=== PATIENT | female | born 1990 | race American Indian/Alaskan Native ===

== ENCOUNTER 2016-11-22 20:05 | Emergency (ER) | payer MEDICAID ==
[2016-11-22 21:37] LABS: Basophils % (Auto) 0.6 % (0.0-1.8); Eosinophils % (Auto) 2.4 % (0.0-4.3); Hematocrit 27.3 % (30.3-42.9); Hemoglobin 8.5 gm/dl (10.1-14.3); Mean Corpuscular HGB Conc 31 % (30-34); Mean Corpuscular Volume 74 fl (79-97); Platelet Count 400 K/mm3 (140-440); Red Blood Count 3.68 M/mm3 (3.65-5.03); Red Cell Distribution Width 16.1 % (13.2-15.2); White Blood Count 14.4 K/mm3 (4.5-11.0)
[2016-11-22 21:40] LABS: Mean Corpuscular Hemoglobin 23 pg (28-32)
--- NOTE | 2016-11-22 21:56 | Emergency Department Report ---
ED Syncope HPI - General Chief Complaint: Syncope Stated Complaint: SYNCOPE Time Seen by Provider: 11/22/16 20:56 Source: patient Exam Limitations: no limitations - History of Present Illness Initial Comments: 26 yo female with past medical history of posttraumatic stress disorder and thyroidectomy presents to the emergency department complaining of syncopal episode. Patient states she was waiting in line when she had sudden LOC. She denies inciting factors prior to LOC such as: headache, chest pain. Patient states she thinks she might have started shaking her legs however witnesses denied this. Patient states she was out for "several seconds and she admits she did hit her head. Patient currently complaining of headache and neck pain. She states headache is a dull ache to the right side of her head and nonradiating no relaxing or remitting factors. Denies: cardiac history, DVT/PE Precipitating Factors: Positive: none Context: standing Loss of Consciousness: brief (seconds) Current Symptoms: back to normal - Related Data Allergies/Adverse Reactions: Allergies No Known Allergies Allergy (Verified 05/13/14 17:47) Home Medications: Ambulatory Orders RX: Methimazole [Tapazole] 10 mg PO DAILY #30 tablet 03/24/13 RX: Propranolol HCl [Propranolol HCl ER] 160 cap PO DAILY 04/26/14 Docusate Sodium [Colace] 100 mg PO BID PRN #60 capsule 11/23/16 HYDROcodone/APAP 5-325 [Thiells 5/325] 1 each PO Q6HR PRN #6 tablet 11/23/16 RX: Ferrous Sulfate [Feosol 325 MG tab] 325 mg PO BID #60 tablet 11/23/16 RX: Ibuprofen [Motrin 800 MG tab] 800 mg PO Q8HR PRN #30 tablet 11/23/16 ED Review of Systems ROS: Stated complaint: SYNCOPE Other details as noted in HPI Constitutional: denies: chills, fever Eyes: denies: eye pain, eye discharge, vision change ENT: denies: ear pain, throat pain Respiratory: denies: cough, shortness of breath, wheezing Cardiovascular: syncope. denies: chest pain, palpitations Endocrine: no symptoms reported Gastrointestinal: denies: abdominal pain, nausea, diarrhea Genitourinary: denies: urgency, dysuria, discharge Musculoskeletal: denies: back pain, joint swelling, arthralgia Skin: denies: rash, lesions Neurological: headache. denies: weakness, paresthesias Psychiatric: denies: anxiety, depression Hematological/Lymphatic: denies: easy bleeding, easy bruising ED Past Medical Hx - Past Medical History Previous Medical History?: Yes Hx Hypertension: Yes Hx Diabetes: No Hx Deep Vein Thrombosis: No Hx Renal Disease: No Hx Sickle Cell Disease: No Hx Seizures: No Hx Asthma: No Hx HIV: No Additional medical history: hyperthyroid, PCOS, ovarian cysts - Surgical History Past Surgical History?: Yes Additional Surgical History: x 2 - Social History Smoking Status: Current Every Day Smoker - Medications Home Medications: Home Medications Medication Instructions Recorded Confirmed Last Taken Type RX: Methimazole [Tapazole] 10 mg PO DAILY #30 tablet 03/24/13 12/02/14 04/25/14 20:00 Rx RX: Propranolol HCl [Propranolol 160 cap PO DAILY 04/26/14 12/02/14 04/26/14 07: 00 History HCl ER] Docusate Sodium [Colace] 100 mg PO BID PRN #60 capsule 11/23/16 Unknown Rx HYDROcodone/APAP 5-325 [Thiells 1 each PO Q6HR PRN #6 tablet 11/23/16 Unknown Rx 5/325] RX: Ferrous Sulfate [Feosol 325 MG 325 mg PO BID #60 tablet 11/23/16 Unknown Rx tab] RX: Ibuprofen [Motrin 800 MG tab] 800 mg PO Q8HR PRN #30 tablet 11/23/16 Unknown Rx ED Physical Exam - General Limitations: No Limitations General appearance: alert, in no apparent distress - Head Head exam: Present: atraumatic, normocephalic - Eye Eye exam: Present: normal appearance - ENT ENT exam: Present: mucous membranes moist - Neck Neck exam: Present: normal inspection, tenderness (paraspinal ). Absent: meningismus, lymphadenopathy, thyromegaly - Respiratory Respiratory exam: Present: normal lung sounds bilaterally. Absent: respiratory distress - Cardiovascular Cardiovascular Exam: Present: regular rate, normal rhythm. Absent: systolic murmur, diastolic murmur, rubs, gallop - GI/Abdominal GI/Abdominal exam: Present: soft, normal bowel sounds - Extremities Exam Extremities exam: Present: normal inspection - Back Exam Back exam: Present: normal inspection - Neurological Exam Neurological exam: Present: alert, oriented X3 - Psychiatric Psychiatric exam: Present: normal affect, normal mood - Skin Skin exam: Present: warm, dry, intact, normal color. Absent: rash ED Course Vital Signs 11/22/16 11/22/16 11/23/16 20:05 22:00 00:00 Temperature 98.8 F 98.8 F 98.9 F Pulse Rate 87 80 85 Respiratory 18 16 18 Rate Blood Pressure 128/88 Blood Pressure 129/88 119/77 [Left] O2 Sat by Pulse 100 98 98 Oximetry - Reevaluation(s) Reevaluation #1: 11/22/16 22:06 pt PERC: negative ED Medical Decision Making - Lab Data Result diagrams: 11/22/16 21:21 11/22/16 21:21 - EKG Data -: EKG Interpreted by Me EKG shows normal: sinus rhythm (62), axis (normal), intervals (pr: normal, QRS normla), ST-T waves (no elevation nor depression ) - Medical Decision Making 26-year-old female with past medical history post traumatic stress and hypothyroid presenting to the emergency department complaining of syncope. Patient workup negative for acute findings. I have low suspicion for: ectopic, pulmonary embolism (PERC negative and pt has no tachycardia, hypoxia, chest pain ). While ambulating to the restroom she did endorse left knee pain. There was no deformity to knee, she was able to ambulate on knee. The images were negative for fracture dislocation. I have applied an Ji bandage and crutches. Patient agrees she is stable discharge home. Critical Care Time: No Critical care attestation.: If time is entered above; I have spent that time in minutes in the direct care of this critically ill patient, excluding procedure time. ED Disposition Clinical Impression: Headache, Cervical sprain, Syncope, Left knee sprain, Anemia Disposition: - TO HOME OR SELFCARE Is pt being admited?: No Does the pt Need Aspirin: No Condition: Stable Instructions: Syncope (ED) Prescriptions: Docusate Sodium [Colace] 100 mg PO BID PRN #60 capsule PRN Reason: Constipation RX: Ferrous Sulfate [Feosol 325 MG tab] 325 mg PO BID #60 tablet HYDROcodone/APAP 5-325 [Thiells 5/325] 1 each PO Q6HR PRN #6 tablet PRN Reason: Pain RX: Ibuprofen [Motrin 800 MG tab] 800 mg PO Q8HR PRN #30 tablet PRN Reason: Pain, Mild (1-3) Referrals: PRIMARY CARE, [Primary Care Provider] - 3-5 Days CASA SOTOMAYOR MD, PHD [Staff Physician] - MANJULA BARON MD [Staff Physician] - 2-3 Days Forms: Work/School Release Form(ED) Time of Disposition: 00:07
[2016-11-22 21:59] LABS: Alanine Aminotransferase 21 units/L (7-56); Albumin 4.4 g/dL (3.9-5); Albumin/Globulin Ratio 1.4 %; Alkaline Phosphatase 92 units/L (35-129); Anion Gap 17 mmol/L; Blood Urea Nitrogen 7 mg/dL (7-17); Calcium 8.6 mg/dL (8.4-10.2); Carbon Dioxide 23 mmol/L (22-30); Chloride 100.7 mmol/L (98-107); Glucose 87 mg/dL (65-100); Potassium 4.3 mmol/L (3.6-5.0); Sodium 136 mmol/L (137-145); Total Protein 7.6 g/dL (6.3-8.2)
--- NOTE | 2016-11-22 22:29 | Cat Scan Report ---
FINAL REPORT PROCEDURE: CT CERVICAL SPINE WO CON TECHNIQUE: Computerized tomography of the cervical spine was performed from the skull base to T1 without contrast material. HISTORY: syncope, neck pain COMPARISON: No prior studies are available for comparison. FINDINGS: No fracture or subluxation is seen. The prevertebral soft tissues appear normal. Disc spaces are well preserved. No focal disc herniation or spinal stenosis is visualized. Posterior elements appear intact. Postsurgical changes are seen in the lower neck anteriorly. There appears to been previous thyroidectomy. IMPRESSION: Negative CT scan cervical spine. No fracture subluxation or disc herniation is visualized. Postsurgical changes lower neck anteriorly suggesting prior thyroidectomy. No other abnormalities are seen..
--- NOTE | 2016-11-22 22:31 | Cat Scan Report ---
FINAL REPORT PROCEDURE: CT HEAD/BRAIN WO CON TECHNIQUE: Computerized tomography of the head was performed without contrast material. HISTORY: syncope, fall, headache COMPARISON: No prior studies are available for comparison. FINDINGS: Brain: Brain density appears normal. No evidence of intracranial hemorrhage. No parenchymal hemorrhage, mass lesions or mass effect are seen. No abnormal extraxial fluid collects or masses are seen. Ventricles: Ventricles are normal size and are midline. Bone Windows: No evidence of skull fracture. Paranasal sinuses: Clear Mastoid air cells: Are clear IMPRESSION: Negative examination. No evidence of intracranial hemorrhage or skull fracture.
[2016-11-22] MEDS ORDERED: MOTRIN PO ONE (22:43)
[2016-11-22 23:47] LABS: Bacteria,Urine 4+ /HPF (Negative); Bilirubin,Urine NEG (Negative); Blood,Urine NEG (Negative); Ketones,Urine NEG (Negative); Leukocyte Esterase,Urine NEG (Negative); Mucus,Urine FEW /HPF; Nitrite,Urine NEG (Negative); Protein,Urine <15 mg/dL mg/dL (Negative); Urobilinogen,Urine < 2.0 mg/dL (<2.0)
[2016-11-23 00:36] VITALS: BP 119/77
--- NOTE | 2016-11-23 08:19 | XRay Report ---
LEFT KNEE THREE VIEWS: 11/22/16 20:05:00 CLINICAL: Knee pain. FINDINGS: No fracture or dislocation. No joint effusion. The soft tissues are normal. IMPRESSION: Normal.
== END 2016-11-23 00:25 | disposition home or self-care (01) ==
LOC: ED 20:05
DX: S16.1XXA Strain of muscle, fascia and tendon at neck level, initial encounter (principal); R55 Syncope and collapse; D64.9 Anemia, unspecified; I10 Essential (primary) hypertension; F17.200 Nicotine dependence, unspecified, uncomplicated; S83.92XA Sprain of unspecified site of left knee, initial encounter; W19.XXXA Unspecified fall, initial encounter; Y93.9 Activity, unspecified; Y92.9 Unspecified place or not applicable; Y99.9 Unspecified external cause status
CPT/HCPCS: 36415; 70450; 72125; 80053; 81001; 84702; 85025; 93005; 93010; 99285

== ENCOUNTER 2019-05-15 07:37 | Emergency (ER) | payer SELFPAY ==
[2019-05-15 08:28] LABS: Basophils # (Auto) 0.1 K/mm3 (0.0-0.1); Eosinophils # (Auto) 0.2 K/mm3 (0.0-0.4); Eosinophils % (Auto) 2.8 % (0.0-4.3); Hematocrit 35.3 % (30.3-42.9); Hemoglobin 11.5 gm/dl (10.1-14.3); Lymphocytes # (Auto) 1.7 K/mm3 (1.2-5.4); Lymphocytes % (Auto) 23.4 % (13.4-35.0); Mean Corpuscular HGB Conc 33 % (30-34); Mean Corpuscular Volume 80 fl (79-97); Monocytes # (Auto) 0.5 K/mm3 (0.0-0.8); Monocytes % (Auto) 6.2 % (0.0-7.3); Platelet Count 326 K/mm3 (140-440); Red Blood Count 4.42 M/mm3 (3.65-5.03); Red Cell Distribution Width 18.4 % (13.2-15.2)
[2019-05-15 08:41] LABS: Albumin 4.6 g/dL (3.9-5); BUN/Creatinine Ratio 13; Blood Urea Nitrogen 10 mg/dL (7-17); Calcium 9.1 mg/dL (8.4-10.2); Hemolysis Index 7
[2019-05-15 08:44] LABS: Alanine Aminotransferase < 5 units/L (7-56)
[2019-05-15 08:44] LABS: Bacteria,Urine 1+ /HPF (Negative); Bilirubin,Urine NEG (Negative); Blood,Urine NEG (Negative); Color,Urine Yellow (Yellow); Mucus,Urine 3+ /HPF
[2019-05-15] MEDS ORDERED: hydrOXYzine PAMOATE 25 MG CAP PO ONE (09:16)
[2019-05-15] MEDS ORDERED: SODIUM CHLORIDE 0.9% 1000 ML 1,000 ML IV ONE (09:16)
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
[2019-05-15 11:44] VITALS: BP 112/68
== END 2019-05-15 11:45 | disposition home or self-care (01) ==
LOC: ED 07:37
DX: N39.0 Urinary tract infection, site not specified (principal); F41.9 Anxiety disorder, unspecified; F17.200 Nicotine dependence, unspecified, uncomplicated; F12.10 Cannabis abuse, uncomplicated; I10 Essential (primary) hypertension; Z98.890 Other specified postprocedural states
CPT/HCPCS: 36415; 80053; 81001; 84703; 85025; 87086; 96365; 99283; J0696; J7030; Q0177

== ENCOUNTER 2019-06-27 05:04 | Emergency (ER) | payer SELFPAY ==
[2019-06-27 05:19] VITALS: BP 115/80
--- NOTE | 2019-06-27 09:37 | Emergency Department Report ---
HPI - General Chief Complaint: Upper Respiratory Infection Time Seen by Provider: 06/27/19 09:16 - HPI HPI: Room 44 The patient is a 29-year-old female presenting with a chief complaint of "flulike symptoms." The patient states for the past 3 days she's had fatigue subjective fever chills and productive cough. Patient states her cough productive of yellow sputum and occasionally causes shortness of breath. Patient admits to rhinorrhea. Patient states she is uncertain if she has came in contact with anyone else that has been sick Location: [See above] Duration: [See above] Quality: [See above] Severity: [See above] Timing: [See above] Context: [See above] Modifying factors: [See above] Associated signs and symptoms: [see above] ED Past Medical Hx - Past Medical History Previous Medical History?: Yes Hx Hypertension: Yes Hx Seizures: Yes Hx Psychiatric Treatment: Yes Additional medical history: hyperthyroid, PCOS, ovarian cysts - Surgical History Additional Surgical History: x 3, total thyroidectomy, bilateral tubal ligation - Family History Family history: no significant - Social History Smoking Status: Former Smoker (none 2 months) Substance Use Type: None (denies illicit drug use) - Medications Home Medications: Home Medications Medication Instructions Recorded Confirmed Last Taken Type Levothyroxine [Synthroid] 100 mcg PO QAM 03/21/17 03/21/17 Unknown History calcitrioL [Rocaltrol] 0.25 mcg PO BID 03/21/17 03/21/17 Unknown History Ferrous Sulfate [Feosol 325 MG tab] 325 mg PO BID #60 tablet 03/24/17 Unknown Rx levETIRAcetam [Keppra] 500 mg PO BID #60 tablet 03/24/17 Unknown Rx Sulfamethoxazole/Trimethoprim 1 each PO BID #10 tablet 05/15/19 Unknown Rx [Bactrim DS TAB] hydrOXYzine PAMOATE [Vistaril] 25 mg PO Q12H PRN #12 capsule 05/15/19 Unknown Rx Benzonatate [Tessalon Perles] 100 mg PO Q8HR #30 capsule 06/27/19 Unknown Rx HYDROcodone/APAP 5-325 [[place] 1 - 2 each PO Q6HR PRN #5 tablet 06/27/19 Unknown Rx 5/325] Ibuprofen [Motrin 800 MG tab] 800 mg PO Q8HR PRN #20 tablet 06/27/19 Unknown Rx Oxymetazoline 0.05% [Vicks Sinex] 1 spray NS BID PRN #1 bottle 06/27/19 Unknown Rx ED Review of Systems ROS: Stated complaint: FLU SXT Other details as noted in HPI Constitutional: fever (subjective), malaise Eyes: denies: eye pain ENT: congestion Respiratory: cough, shortness of breath Cardiovascular: denies: chest pain Endocrine: no symptoms reported Gastrointestinal: denies: abdominal pain Genitourinary: denies: dysuria Musculoskeletal: denies: back pain Physical Exam - Physical Exam Vital Signs: Vital Signs 06/27/19 05:16 Temperature 99.5 F Pulse Rate 110 H Respiratory 18 Rate Blood Pressure 115/80 O2 Sat by Pulse 99 Oximetry Physical Exam: GENERAL: The patient is well-developed well-nourished female sitting in chair not appearing to be in acute distress. [] HEENT: Normocephalic. Atraumatic. Extraocular motions are intact. Patient has moist mucous membranes. NECK: Supple. Trachea midline CHEST/LUNGS: Clear to auscultation. There is no respiratory distress noted. HEART/CARDIOVASCULAR: Regular. There is no tachycardia. There is no gallop rub or murmur. ABDOMEN: Abdomen is soft, nontender. Patient has normal bowel sounds. There is no abdominal distention. SKIN: There is no rash. There is no edema. There is no diaphoresis. NEURO: The patient is awake, alert, and oriented. The patient is cooperative. The patient has normal speech MUSCULOSKELETAL: There is no evidence of acute injury. ED Course Vital Signs 06/27/19 05:16 Temperature 99.5 F Pulse Rate 110 H Respiratory 18 Rate Blood Pressure 115/80 O2 Sat by Pulse 99 Oximetry ED Medical Decision Making - Lab Data Laboratory Tests 06/27/19 09:34 Influenza A (Rapid) Positive A Influenza B (Rapid) Negative - Radiology Data Radiology results: report reviewed (chest x-ray), image reviewed (chest x-ray) interpreted by me: Chest x-ray-no focal infiltrates, no pneumothorax Findings [facility] [address] [place] [address] XRay Report Signed Patient: RAYMUNDO WHITE MR#: [id number] : 1990 Acct:[id number] Age/Sex: 29 / F ADM Date: 06/27/19 Loc: ED Attending Dr: Ordering Physician: DIMITRY LEMONS MD Date of Service: 06/27/19 Procedure(s): XR chest routine 2V Accession Number(s): [id number] cc: DIMITRY LEMONS MD Fluoro Time In Minutes: CHEST 2 VIEWS / XR chest routine 2V INDICATION / CLINICAL INFORMATION: cough, congestion. Chills, productive cough, bodyache, headache for 3 days. COMPARISON: None FINDINGS: PA and lateral chest radiographs demonstrate normal cardiomediastinal silhouette. Clear lungs without pleural effusions or CHF. Intact bones. IMPRESSION: No acute chest process, as described. Thank you for the opportunity to participate in this patient's care. Signer Name: Rachael Pitts Signed: 06/27/2019 10:20 AM Workstation Name: [id number] Transcribed By: RS Dictated By: RACHAEL PITTS MD Electronically Authenticated By: RACHAEL PITTS MD Signed Date/Time: 06/27/19 1020 DD/ 1019 TD/TT: - Differential Diagnosis influenza, URI, bronchitis, pneumonia Critical care attestation.: If time is entered above; I have spent that time in minutes in the direct care of this critically ill patient, excluding procedure time. ED Disposition Clinical Impression: Influenza A Disposition: DC-01 TO HOME OR SELFCARE Is pt being admited?: No Does the pt Need Aspirin: No Condition: Stable Instructions: Influenza (ED) Additional Instructions: Return to the emergency department should you develop worsening symptoms, inability to tolerate food or liquids, high fever or any other concerns Prescriptions: Ibuprofen [Motrin 800 MG tab] 800 mg PO Q8HR PRN #20 tablet PRN Reason: Pain, Moderate (4-6) HYDROcodone/APAP 5-325 [[place] 5/325] 1 - 2 each PO Q6HR PRN #5 tablet PRN Reason: Pain Benzonatate [Tessalon Perles] 100 mg PO Q8HR #30 capsule Oxymetazoline 0.05% [Vicks Sinex] 1 spray NS BID PRN #1 bottle PRN Reason: Nasal Congestion Referrals: BRANDIE SHI III, [facility] [Primary Care Provider] - 3-5 Days Time of Disposition: 11:10
--- NOTE | 2019-06-27 10:24 | XRay Report ---
CHEST 2 VIEWS / XR chest routine 2V INDICATION / CLINICAL INFORMATION: cough, congestion. Chills, productive cough, bodyache, headache f or 3 days. COMPARISON: None FINDINGS: PA and lateral chest radiographs demonstrate normal cardiomediastinal silhouette. Clear aurea gs without pleural effusions or CHF. Intact bones. IMPRESSION: No acute chest process, as described. Thank you for the opportunity to participate in this patient's care. Signer Name: Braxton Ansari Signed: 06/27/2019 10:20 AM Workstation Name: [id number]
== END 2019-06-27 11:29 | disposition home or self-care (01) ==
LOC: ED 05:04
DX: J10.1 Influenza due to other identified influenza virus with other respiratory manifestations (principal); I10 Essential (primary) hypertension; E03.9 Hypothyroidism, unspecified; Z87.891 Personal history of nicotine dependence
CPT/HCPCS: 71046; 87400; 99283